=== PATIENT | male | born 1975 | race Caucasian/White ===

== ENCOUNTER 2016-04-18 21:41 | Emergency (ER) | payer OTHER ==
--- NOTE | 2016-04-18 22:49 | ED CLINICAL REPORT ---
Clinical Report - Physicians/Mid Levels [facility] [address] [place] [address] 04/18/2016 21:40 Patient: DESTINY WOOD Time Seen: 21:48; upon arrival, initial patient contact, initial documentation, patient care assumed. Arrived- By ambulance. Historian- patient. HISTORY OF PRESENT ILLNESS Chief Complaint: ABDOMINAL PAIN and FLANK PAIN. At its maximum, severity described as severe. When seen in the E.D., severity described as severe. Modifying factors- worsened by movement. Not relieved by anything. It is described as "pain". No radiation. It is described as located in the left abdomen and left lower quadrant and the left flank. This started just prior to arrival and is still present. The patient has had nausea. No loss of appetite. He has had vomiting (none today but threw a few times yesterday). He has had loose stools (few times today). This has occurred several times. No bloody, watery or blood-tinged diarrhea. No additional abdominal pain. No recent travel. Similar symptoms previously: Several times, as bad. ( says he pain is due from episodes of kidney failure). Recent medical care: Not recently seen/assessed. REVIEW OF SYSTEMS No constipation, black stools, hematemesis, difficulty with urination or pain with urination. No urinary frequency, bloody stools, fever, chest pain or difficulty breathing. All systems otherwise negative, except as recorded above. PAST HISTORY See nurses notes. PROBLEMS: ADHD - Attention Deficit Hyperactivity Disorder. URI. Immunizations. Sinus infection. --22:10 Kodak Velasquez R.N. ADDITIONAL SURGERIES: Circumcision. --22:10 Kodak Velasquez R.N. SOCIAL HISTORY Never smoker. Occasional alcohol use. History of occasional drug use: marijuana. No recent travel. Is a local resident. FAMILY HISTORY Negative. ADDITIONAL NOTES The nursing notes have been reviewed with agreement regarding the chief complaint, HPI, ROS, PMH and patient medications and allergies. PHYSICAL EXAM Vital Signs: 04/18/2016 21:47 BP: 128/88. HR: 90. RR: 16. O2 saturation: 98%. Temp: 98 F. Have been reviewed as normal and appear to be correct. Appearance: Alert. Oriented X3. No acute distress. Eyes: Pupils equal, round and reactive to light. Eyes normal inspection. Neck: Normal inspection. Neck supple. CVS: Normal heart rate and rhythm. Heart sounds normal. Pulses normal. Respiratory: No respiratory distress. Breath sounds normal. Chest nontender. Abdomen: Soft and nontender. Bowel sounds normal. No organomegaly. No mass. Back: Abnormal inspection. Mild CVA tenderness on the left. Skin: Skin warm and dry. Normal skin color. No rash. Normal skin turgor. Extremities: Extremities exhibit normal ROM. No lower extremity edema. Neuro: Oriented X 3. No motor deficit. No sensory deficit. LABS, X-RAYS, AND EKG Laboratory Tests: UA-Culture if indicated: (CHARANJIT: 04/18/2016 22:10) ( [facility] 04/18/2016 22:33) Final results Test Result Flag Units (Reference) URINE COLOR YELLOW URINE APPEARANCE CLEAR URINE GLUCOSE TRACE (NEGATIVE) URINE BILIRUBIN NEGATIVE (NEGATIVE) URINE KETONE NEGATIVE (NEGATIVE) URINE SPECIFIC GRAVITY 1.015 (1.010-1.030) URINE PH 7.0 (5.0-8.0) URINE PROTEIN NEGATIVE (NEGATIVE) URINE UROBILINOGEN 0.2 EU/dL (0.2-1.0) URINE NITRITE NEGATIVE (NEGATIVE) URINE BLOOD NEGATIVE (NEGATIVE) URINE LEUK ESTERASE NEGATIVE (NEGATIVE) URINE RBC NONE SEEN rbc/hpf (0-1) URINE WBC NONE SEEN wbc/hpf (0-1) URINE EPITHELIAL CELLS NONE SEEN EPI/hpf (0-5) URINE BACTERIA NONE SEEN (NONE SEEN) URINE COMMENT CULT NOT INDICATED URINE CULTURES ARE SET-UP BASED ON THE FOLLOWING CRITERIA:POSITIVE NITRITEPOSITIVE LEUKOCYTE ESTERASEGREATER THAN 10 WHITE BLOOD CELLSMODERATE (2+) OR GREATER BACTERIA CBC w Diff: (CHARANJIT: 04/18/2016 21:50) ( [facility] 04/18/2016 22:15) Final results Test Result Flag Units (Reference) WHITE BLOOD COUNT 6.9 K/uL (4.5-11.5) RED BLOOD COUNT 4.31 L M/uL (4.50-5.90) HEMOGLOBIN 13.3 L gm/dL (13.5-17.5) HEMATOCRIT 38.9 L % (41.0-53.0) MEAN CELL VOLUME 90 fL (80-100) MEAN CORPUSCULAR HGB 31 pg (26-34) MEAN CORPUSCULAR HGB CONC 34 g/dL (31-37) RED CELL DISTRIBUTION WIDTH 13.2 % (11.6-14.8) PLATELET COUNT 350 K/uL (150-400) LYMPH % 32.6 % (25-40) MONO % 3.1 % (3-14) GRANULOCYTE % 64.3 Urine Drug Screen: (CHARANJIT: 04/18/2016 22:10) ( MsgRcvd 04/18/2016 22:40) Final results Test Result Flag Units (Reference) AMPHETAMINE/METHAMPHETAMINE NEGATIVE (NEGATIVE) BARBITURATE NEGATIVE (NEGATIVE) BENZODIAZEPINE NEGATIVE (NEGATIVE) CANNABINOID POSITIVE H (NEGATIVE) COCAINE NEGATIVE (NEGATIVE) ECSTASY NEGATIVE (NEGATIVE) METHADONE NEGATIVE (NEGATIVE) OPIATE NEGATIVE (NEGATIVE) The urine drug screen is a qualitative screening test fordrug overdose and abuse. All screen results should beconsidered as presumptive.Drugs screened for are as follows:BenzodiazepinesCocaineAmphetamines/MetamphetaminesTHC (Tetrahydrocannabinol)OpiatesBarbituratesEcstasyMethadonePositive results are unconfirmed. For confirmation, notifythe lab for the specimen to be sent to the reference lab.All confirmations must be performed by a differentmethodology.The ingestion of natural herbal and plant productscontaining Ephedra/Ephedra metabolites can produce in urineone or more substances capable of cross reacting withamphetamine/methamphetamine immunoassays. These testsprovide a preliminary result only. A more specificalternative chemical method must be used to obtain aconfirmed analytical result. CMP: (CHARANJIT: 04/18/2016 21:50) ( MsgRcvd 04/18/2016 22:37) Final results Test Result Flag Units (Reference) GLUCOSE 221 H mg/dL (70-110) BUN 19 H mg/dL (7-18) CREATININE 1.4 H mg/dL (0.6-1.3) Estimated GFR >60 mL/min Estimated GFR- >60 mL/min Note: Persistent reduction over 3 months in eGFR<60 mL/min/1.73 m2 defines CKD. Patients with eGFR values>=60 mL/min/1.73 m2 may also have CKD if evidence ofpersistent proteinuria. Additional information may be foundat www.kidney.org. SODIUM 139 mmol/L (136-145) POTASSIUM 3.6 mmol/L (3.5-5.1) CHLORIDE 99 mmol/L (98-107) CARBON DIOXIDE 31 mmol/L (21-32) CALCIUM 9.6 mg/dL (8.5-10.1) TOTAL PROTEIN 7.8 g/dL (6.4-8.2) ALBUMIN 4.4 g/dL (3.3-5.0) BILIRUBIN, TOTAL 0.7 mg/dL (0.0-1.0) ALKALINE PHOSPHATASE 100 U/L (46-116) AST (SGOT) 23 U/L (15-37) ALT (SGPT) 36 U/L (12-78) LIPASE 198 U/L (73-393) AMYLASE 27 U/L (25-115) . PROGRESS AND PROCEDURES Course of Care: 21:59 04/18/16. pt has long lore with recommendation of no narcs, controlled substances, benzos rx or in er, limit radiation and frequent er visits, see report for full details. Patient counseled in person regarding the patient's stable condition, test results and diagnosis. 22:42. Differential Diagnosis: I considered gastritis, gastroenteritis, peptic ulcer disease, gastroesophageal reflux disease, diverticulitis, colon cancer, splenic infarction, spontaneous bacterial peritonitis, hernia, urinary tract infection, prostatitis, ureterolithiasis and viral syndrome as a possible cause of abdominal pain in this patient. This is a partial list of diagnoses considered. (substance abuse). Above considerations are based on history, physical exam and laboratory data. Differential diagnosis was discussed with patient and patient's spouse. Disposition: Discharged home in good and improved condition (22:49). Condition: good and stable. CLINICAL IMPRESSION Acute left upper quadrant abdominal pain of unknown cause. Acute left flank pain INSTRUCTIONS Warnings: GENERAL WARNINGS: Return or contact your physician immediately if your condition worsens or changes unexpectedly, if not improving as expected, or if other problems arise. SPECIFICALLY, return if you develop fever, the inability to keep fluids down, blood in vomitus, blood in diarrhea, fainting or lightheadedness. Prescription Medications: Zofran 4 mg: Take 1 orally every six hours as needed for nausea/vomiting. Dispense ten (10). No refills. Substitution is permissible. Bentyl 20 mg tablets: take 1 orally every 6 hours as needed. Dispense thirty (30). No refills. Substitution is permissible. Follow-up: Follow up with your doctor in about two days even if well. Call for an appointment. Summary of care provided to patient and family. Understanding of the discharge instructions verbalized by patient. (Electronically signed by Nancy Graves A.R.N.P. 04/26/2016 13:18)
--- NOTE | 2016-04-18 22:49 | ED NURSING NOTES ---
Clinical Report - Nurses [facility] [address] [place] [place] [address] 04/18/2016 21:40 Patient: DESTINY WOOD TRIAGE Triage time 2148. Acuity: LEVEL 3. Chief Complaint: (left flank pain). Alert. No acute distress. --21:52 Caroline Restrepo 21:47 04/18/16. BP: 128/88. HR: 90. RR: 16. O2 saturation: 98%. Temp: 98 F. Pain level now 12/10. --21:52 Caroline Restrepo. Weight: 111.1 kg. Height/Length: 68 inches. BMI: 37.3. --21:47 Caroline Restrepo. Medications MetFORMIN HCl Oral. --21:49 Caroline Restrepo Baclofen Oral. --21:49 Caroline Restrepo Amitriptyline HCl Oral. --21:50 Caroline Restrepo ClonazePAM Oral. --21:50 Caroline Restrepo Gabapentin Oral. --21:50 Caroline Restrepo Sertraline HCl Oral. --21:50 Caroline Restrepo. Allergies Ibuprofen. --21:50 Caroline Restrepo Aspirin. --21:50 Caroline Restrepo Tylenol. --21:50 Caroline Restrepo Codeine. --21:51 Caroline Restrepo. History Arrived by EMS. Historian: patient. Accompanied by family. This started yesterday. ( [facility] and his flank pain became worse and 911 was called, pt is a diabetic and has hx of episodic renal failure). SOCIAL HX: Never smoker. History of drug use: marijuana. --21:52 Caroline Restrepo. PROBLEMS: Hypertension. Diabetes Mellitus. --21:51 Caroline Restrepo. ADDITIONAL SURGERIES: Knee Surgery. --21:51 Caroline Restrepo. Interventions To treatment room. --21:52 Caroline Restrepo. PHYSICAL ASSESSMENT To room via stretcher. Patient gowned. GENERAL / NEURO / PSYCH: Alert. Oriented X 4. Appears in no acute distress. HEENT: Mucous membranes are pink. RESPIRATORY: Respirations not labored. Breath sounds within normal limits. CVS: Normal heart rate and rhythm. Capillary refill less than 2 seconds. GI / : Abdomen soft and nontender. Bowel sounds within normal limits. SKIN: Skin is warm and dry. --21:52 Caroline Restrepo. NURSING PROGRESS NOTES 22:00 04/18/2016 Site #1 started via IV in the left antecubital space with an 20g angiocath, with aseptic technique and good blood return; two attempts. Blood drawn: rainbow set. Labeled in the presence of the patient and sent to the lab. Saline lock flushed with 10 mL saline. --22:02 Philly Vragas R.N. 22:15 04/18/2016 Zofran (Ondansetron HCl) IVP 4 mg given. via site #1. Allergies verified and confirmed 5 rights. IV patency established. IV site checked: no pain, redness, or swelling. IV flushed thoroughly pre- and post-medication administration. IVP given by RN. --22:15 Caroline Restrepo 22:16 04/18/2016 Started bag #1 1000 mL IV Fluids IV NS (Saline); bolus of 1000 mL wide open via site #1. Allergies verified and confirmed 5 rights. IV patency established. IV site checked: no pain, redness, or swelling. IV flushed thoroughly pre- and post-medication administration. --22:16 Caroline Restrepo. DISPOSITION / DISCHARGE 23:08 04/18/16. BP: 128/72. HR: 80. RR: 14. O2 saturation: 97%. --23:09 Caroline Restrepo Departure time: 2305. Condition at departure: unchanged and stable. No learning barriers present. Discharge instructions provided and reviewed with the patient. Reviewed medication(s). Patient and spouse verbalized understanding. Written instructions provided in Bots[place]an. The patient was discharged by the nurse practitioner. He was discharged home and accompanied by spouse. He left the Emergency Department ambulatory and via ([employer]). --23:09 Caroline Restrepo 23:10 04/18/2016 Site #1 removed upon discharge. Pressure dressing applied. --23:10 Caroline Restrepo 23:10 04/18/2016 IV Saline Lock Drip IV Discontinued: bag #1 infused upon discharge. Total amount infused: 1000 mL. IV patency established. IV site checked: no pain, redness, or swelling. IV flushed thoroughly. --23:10 Caroline Restrepo. Locked/Released at 04/18/2016 23:11 by Caroline Restrepo,
--- NOTE | 2016-04-18 22:49 | ED NURSING NOTES ---
Clinical Report - Nurses [facility] [place] [address] 04/18/2016 21:40 Patient: DESTINY WOOD TRIAGE Triage time 2148. Acuity: LEVEL 3. Chief Complaint: (left flank pain). Alert. No acute distress. --21:52 Caroline Restrepo 21:47 04/18/16. BP: 128/88. HR: 90. RR: 16. O2 saturation: 98%. Temp: 98 F. Pain level now 12/10. --21:52 Caroline Restrepo. Weight: 111.1 kg. Height/Length: 68 inches. BMI: 37.3. --21:47 Caroline Restrepo. Medications MetFORMIN HCl Oral. --21:49 Caroline Restrepo Baclofen Oral. --21:49 Caroline Restrepo Amitriptyline HCl Oral. --21:50 Caroline Restrepo ClonazePAM Oral. --21:50 Caroline Restrepo Gabapentin Oral. --21:50 Caroline Restrepo Sertraline HCl Oral. --21:50 Caroline Restrepo. Allergies Ibuprofen. --21:50 Caroline Restrepo Aspirin. --21:50 Caroline Restrepo Tylenol. --21:50 Caroline Restrepo Codeine. --21:51 Caroline Restrepo. History Arrived by EMS. Historian: patient. Accompanied by family. This started yesterday. ( Pt was at the [facility] and his flank pain became worse and 911 was called, pt is a diabetic and has hx of episodic renal failure). SOCIAL HX: Never smoker. History of drug use: marijuana. --21:52 Caroline Restrepo. PROBLEMS: Hypertension. Diabetes Mellitus. --21:51 Caroline Restrepo. ADDITIONAL SURGERIES: Knee Surgery. --21:51 Caroline Restrepo. Interventions To treatment room. --21:52 Caroline Restrepo. PHYSICAL ASSESSMENT To room via stretcher. Patient gowned. GENERAL / NEURO / PSYCH: Alert. Oriented X 4. Appears in no acute distress. HEENT: Mucous membranes are pink. RESPIRATORY: Respirations not labored. Breath sounds within normal limits. CVS: Normal heart rate and rhythm. Capillary refill less than 2 seconds. GI / : Abdomen soft and nontender. Bowel sounds within normal limits. SKIN: Skin is warm and dry. --21:52 Caroline Restrepo. NURSING PROGRESS NOTES 22:00 04/18/2016 Site #1 started via IV in the left antecubital space with an 20g angiocath, with aseptic technique and good blood return; two attempts. Blood drawn: rainbow set. Labeled in the presence of the patient and sent to the lab. Saline lock flushed with 10 mL saline. --22:02 Philly Vargas R.N. 22:15 04/18/2016 Zofran (Ondansetron HCl) IVP 4 mg given. via site #1. Allergies verified and confirmed 5 rights. IV patency established. IV site checked: no pain, redness, or swelling. IV flushed thoroughly pre- and post-medication administration. IVP given by RN. --22:15 Caroline Restrepo 22:16 04/18/2016 Started bag #1 1000 mL IV Fluids IV NS (Saline); bolus of 1000 mL wide open via site #1. Allergies verified and confirmed 5 rights. IV patency established. IV site checked: no pain, redness, or swelling. IV flushed thoroughly pre- and post-medication administration. --22:16 Caroline Restrepo. DISPOSITION / DISCHARGE 23:08 04/18/16. BP: 128/72. HR: 80. RR: 14. O2 saturation: 97%. --23:09 Caroline Restrepo Departure time: 2305. Condition at departure: unchanged and stable. No learning barriers present. Discharge instructions provided and reviewed with the patient. Reviewed medication(s). Patient and spouse verbalized understanding. Written instructions provided in [place]ian. The patient was discharged by the nurse practitioner. He was discharged home and accompanied by spouse. He left the Emergency Department ambulatory and via ([employer]). --23:09 Caroline Restrepo 23:10 04/18/2016 Site #1 removed upon discharge. Pressure dressing applied. --23:10 Caroline Restrepo 23:10 04/18/2016 IV Saline Lock Drip IV Discontinued: bag #1 infused upon discharge. Total amount infused: 1000 mL. IV patency established. IV site checked: no pain, redness, or swelling. IV flushed thoroughly. --23:10 Caroline Restrepo. Locked/Released at 04/18/2016 23:11 by Caroline Restrepo,
--- NOTE | 2016-04-18 22:49 | ED ORDER SUMMARY ---
..... Patient: DESTINY WOOD OrderSheet [facility] VisitID: [id number] [place] [address] 40y, M Registration Date/Time: 04/18/2016 ORDER SHEET Weight: 111.1 kg Allergies: Ibuprofen, Aspirin, Tylenol, Codeine GENERAL ORDERS: CBC w Diff Urgent (21:59 04/18/2016 HBivens A.R.N.P.) (Ack 22:07 NHouse ER Tech1) CMP Urgent (:04/18/2016 HBivens A.R.N.P.) (Ack 22:07 NHouse ER Tech1) UA-Culture if indicated Urgent (:04/18/2016 HBivens A.R.N.P.) (Ack 22:07 NHouse ER Tech1) Urine Drug Screen Urgent (:04/18/2016 HBivens A.R.N.P.) (Ack 22:07 NHouse ER Tech1) Amylase Urgent (:04/18/2016 HBivens A.R.N.P.) (Ack 22:07 NHouse ER Tech1) Lipase Urgent (:04/18/2016 HBivens A.R.N.P.) (Ack 22:07 NHouse ER Tech1) MEDICATION ORDERS: Zofran ODT PO 4 mg (NOW) (21:58 04/18/2016 HBivens A.R.N.P.) (Ack 22:03 SRoberts R.N.) (Cancelled: Other22:10 HBivens A.R.N.P.) IV FLUIDS: IV NS : initial bolus 1000 mL (1000 mL/hr), then none - (NOW) (21:58 04/18/2016 HBivens A.R.N.P.) (Ack 22:03 SRoberts R.N.) (22:16 [facility]) IV Saline Lock (:59 04/18/2016 HBivens A.R.N.P.) (22:02 SRoberts R.N.) Zofran IV 4 mg (NOW) (22:10 04/18/2016 HBivens A.R.N.P.) (22:15 [facility]) ORDER SHEET NOTES: [Electronically signed by Caroline Restrepo (23:11 04/18/2016)] [Electronically signed by Nancy GravesR.N.PJodi (13:18 04/26/2016)] [Electronically locked/signed by Caroline Restrepo (23:11 04/18/2016)]
--- NOTE | 2016-04-18 22:49 | ED ORDER SUMMARY ---
..... Patient: DESTINY WOOD OrderSheet [facility] VisitID: [id number] [place] [address] 40y, M Registration Date/Time: 04/18/2016 ORDER SHEET Weight: 111.1 kg Allergies: Ibuprofen, Aspirin, Tylenol, Codeine GENERAL ORDERS: CBC w Diff Urgent (21:59 04/18/2016 HBivens A.R.N.P.) (Ack 22:07 NHouse ER Tech1) CMP Urgent (:04/18/2016 HBivens A.R.N.P.) (Ack 22:07 NHouse ER Tech1) UA-Culture if indicated Urgent (:04/18/2016 HBivens A.R.N.P.) (Ack 22:07 NHouse ER Tech1) Urine Drug Screen Urgent (:04/18/2016 HBivens A.R.N.P.) (Ack 22:07 NHouse ER Tech1) Amylase Urgent (:04/18/2016 HBivens A.R.N.P.) (Ack 22:07 NHouse ER Tech1) Lipase Urgent (:04/18/2016 HBivens A.R.N.P.) (Ack 22:07 NHouse ER Tech1) MEDICATION ORDERS: Zofran ODT PO 4 mg (NOW) (21:58 04/18/2016 HBivens A.R.N.P.) (Ack 22:03 SRoberts R.N.) (Cancelled: Other22:10 HBivens A.R.N.P.) IV FLUIDS: IV NS : initial bolus 1000 mL (1000 mL/hr), then none - (NOW) (21:58 04/18/2016 HBivens A.R.N.P.) (Ack 22:03 SRoberts R.N.) (22:16 [facility]) IV Saline Lock (:59 04/18/2016 HBivens A.R.N.P.) (22:02 SRoberts R.N.) Zofran IV 4 mg (NOW) (22:10 04/18/2016 HBivens A.R.N.P.) (22:15 [facility]) ORDER SHEET NOTES: [Electronically signed by Caroline Restrepo (23:11 04/18/2016)] [Electronically signed by Nancy GravesR.N.PJodi (13:18 04/26/2016)] [Electronically locked/signed by Caroline Restrepo (23:11 04/18/2016)]
--- NOTE | 2016-04-26 13:18 | ED MAR SUMMARY ---
..... Medication Administration Record [facility] [address] [place] [address] Patient: DESTINY WOOD Visit ID: [id number] 40y, M Weight: 111.1 kg Height/Length: 68 in BMI: 37.3 ALLERGIES: Codeine, Tylenol, Aspirin, Ibuprofen Given 22:15 04/18/2016 Caroline Restrepo, Medication Administered: ZOFRAN [IVP] (ONDANSETRON HCL), Dose: 4 mg IVP, Site: #1 left AC. Medication Ordered: Zofran IV 4 mg (NOW). Start 22:16 04/18/2016 Caroline Restrepo, Medication Administered: IV NS (SALINE), Dose: IV Fluids, Bolus: 1000 mL wide open, Dispensed: 1000 mL bag, Site: #1 left AC. Medication Ordered: IV NS : initial bolus 1000 mL (1000 mL/hr), then none - (NOW).
--- NOTE | 2016-04-26 13:18 | ED MAR SUMMARY ---
..... Medication Administration Record [facility] [address] [place] [address] Patient: DESTINY WOOD Visit ID: [id number] 40y, M Weight: 111.1 kg Height/Length: 68 in BMI: 37.3 ALLERGIES: Codeine, Tylenol, Aspirin, Ibuprofen Given 22:15 04/18/2016 Caroline Restrepo, Medication Administered: ZOFRAN [IVP] (ONDANSETRON HCL), Dose: 4 mg IVP, Site: #1 left AC. Medication Ordered: Zofran IV 4 mg (NOW). Start 22:16 04/18/2016 Caroline Restrepo, Medication Administered: IV NS (SALINE), Dose: IV Fluids, Bolus: 1000 mL wide open, Dispensed: 1000 mL bag, Site: #1 left AC. Medication Ordered: IV NS : initial bolus 1000 mL (1000 mL/hr), then none - (NOW).
--- NOTE | 2016-04-26 13:18 | ED MED RECONCILIATION SUMMARY ---
Patient: DESTINY WOOD Medication Reconciliation Report [facility] VisitID: [id number] [place] [address] 40y, M Registration Date/Time: 04/18/2016 Weight: 111.1 kg Height/Length: 68 in. BMI: 37.3 ALLERGIES: Aspirin, Codeine, Ibuprofen, Tylenol The patient's Home Medications are listed below: THE FOLLOWING MEDICATIONS NEED TO BE RECONCILED: Amitriptyline HCl Oral Baclofen Oral ClonazePAM Oral Gabapentin Oral MetFORMIN HCl Oral Sertraline HCl Oral The source(s) of the original Home Medication information: Not obtained. The following Medications were given to the patient in the Emergency Department: Zofran [IVP] IVP 4 mg, administered: 04/18/2016 10:15:00 PM IV NS IV Fluids bolus 1000 mL wide open, administered: 04/18/2016 10:16:00 PM The following Medications were prescribed to the patient: Zofran 4 mg: Take 1 orally every six hours as needed for nausea/vomiting. Dispense ten (10). No refills. Substitution is permissible. -- Nancy Graves A.R.N.P. Bentyl 20 mg tablets: take 1 orally every 6 hours as needed. Dispense thirty (30). No refills. Substitution is permissible. -- Nancy Graves A.R.N.P.
--- NOTE | 2016-04-26 13:18 | ED DISCHARGE INSTRUCTIONS ---
Patient: DESTINY WOOD General Instructions [facility] VisitID: [id number] [place] [address] 40y, M Registration Date/Time: 04/18/2016 Acute left upper quadrant abdominal pain of unknown cause. Acute left flank pain INSTRUCTIONS Warnings: GENERAL WARNINGS: Return or contact your physician immediately if your condition worsens or changes unexpectedly, if not improving as expected, or if other problems arise. SPECIFICALLY, return if you develop fever, the inability to keep fluids down, blood in vomitus, blood in diarrhea, fainting or lightheadedness. Prescription Medications: Zofran 4 mg: Take 1 orally every six hours as needed for nausea/vomiting. Dispense ten (10). No refills. Substitution is permissible. Bentyl 20 mg tablets: take 1 orally every 6 hours as needed. Dispense thirty (30). No refills. Substitution is permissible. Follow-up: Follow up with your doctor in about two days even if well. Call for an appointment. Summary of care provided to patient and family. Understanding of the discharge instructions verbalized by patient. ADDITIONAL INFORMATION Abdominal Pain,Uncertain Cause [Male] Based on your visit today, the exact cause of your abdominalpain is not clear. Your exam and tests do not indicate a dangerous cause at this time. However, the signs of a serious problem may take more time to appear. Although your evaluation was reassuring today, sometimes early in the course of many conditions, exam and lab tests can appear normal. Therefore, it is important for you to watch for any new symptoms or worsening of your condition. Causes It may not be obvious what caused your symptoms. Pay attention to things that do seem to make your symptoms worse or better and discuss this with your doctor when you follow up. Diagnosis The evaluation of abdominal pain in the emergency department may onlyrequire an exam by the doctor or it may include blood, urine or imaging studies, depending on many factors. Sometimes exams and tests can identify a cause but in many cases, a clear cause is not found. Further testing at follow up visits may help to suggest a clear diagnosis. Home Care Rest as much as possible until your next exam. Try to avoid any medications (unless otherwise directed by your doctor), foods, activities, or other factors that you may have contributed to your symptoms. Try to eat foods that you know that you have tolerated well in the past. Certain diets may be recommended for some conditions that cause abdominal pain. However, since the cause of your symptoms may not be clear, discuss your diet more with your primary care provider or specialist for further recommendations. Eating several small meals per day as opposed to 2 or 3 larger meals may help. Monitor closely for anything that may make your symptoms worse or better. Pay close attention to symptoms below that may indicate worsening of your condition. Follow Up and Precautions See your doctoras instructed or sooneror if your symptoms are not improving.In some cases, you may need more testing. When to Seek Medical Attention Contact your doctor or see medical attention ifany of the following occur: Pain is becoming worse You are unable to take your medications due to excessive vomiting Swelling of the abdomen Fever of 100.4F (38C) or higher, or as directed by your health care provider Blood in vomit or bowel movements (dark red or black color) Jaundice (yellow color of eyes and skin) New onset of weakness, dizziness or fainting New onset of chest, arm, back, neck or jaw pain Flank Pain[Uncertain Cause] The flank is the area between the upper abdomen and the back. Pain here is often related to the kidneyan infection or a kidney stone. Other causes of flank pain include spinal arthritis, pinched nerve from a disk injury, back muscle strain or spasm. The cause of your flank pain is not certain and further tests may be needed. Home Care: You may use acetaminophen (Tylenol) or ibuprofen (Motrin, Advil) to control pain, unless another medicine was prescribed. [NOTE: If you have chronic liver or kidney disease or ever had a stomach ulcer or GI bleeding, talk with your doctor before using these medicines.] If the cause of your pain is coming from the muscles, ice or heat may give relief. During the first two days after injury, apply an ICE PACK to the painful area for 20 minutes every 2-4 hours. This will reduce swelling and pain. HEAT (hot shower, hot bath or heating pad) works well for muscle spasm. You can start with ice, then switch to heat after two days. Some patients feel best alternating ice and heat treatments. Use the one method that feels the best to you. Follow Up with your doctor or as advised by our staff for further evaluation if your symptoms are not improving over the next few days. Return Promptly or contact your doctor if any of the following occur: Repeated vomiting Fever of 100.4F (38C) or higher, or as directed by your healthcare provider Increasing flank pain Pain that spreads to the front of the abdomen Dizziness, weakness or fainting Blood in your urine Burning with urination or frequent urination Increasing pain in the leg Numbness or weakness in the leg Ondansetron Oral disintegrating tablet What is this medicine? ONDANSETRON (on GAVIN se mihaela) is used to treat nausea and vomiting caused by chemotherapy. It is also used to prevent or treat nausea and vomiting after surgery. How should I use this medicine? These tablets are made to dissolve in the mouth. Do not try to push the tablet through the foil backing. With dry hands, peel away the foil backing and gently remove the tablet. Place the tablet in the mouth and allow it to dissolve, then swallow. While you may take these tablets with water, it is not necessary to do so. Talk to your liquid sugar fortifier regarding the use of this medicine in children. Special care may be needed. What side effects may I notice from receiving this medicine? Side effects that you should report to your doctor or health manager intensive care as soon as possible: allergic reactions like skin rash, itching or hives, swelling of the face, lips, or tongue breathing problems dizziness fast or irregular heartbeat feeling faint or lightheaded, falls fever and chills swelling of the hands and feet tightness in the chest Side effects that usually do not require medical attention (report to your doctor or health manager intensive care if they continue or are bothersome): constipation or diarrhea headache What may interact with this medicine? Do not take this medicine with any of the following medications: -apomorphine -cisapride -dofetilide -dronedarone -pimozide -thioridazine -ziprasidone This medicine may also interact with the following medications: -carbamazepine -phenytoin -rifampicin -tramadol -other medicines that prolong the QT interval (cause an abnormal heart rhythm) What if I miss a dose? If you miss a dose, take it as soon as you can. If it is almost time for your next dose, take only that dose. Do not take double or extra doses. Where should I keep my medicine? Keep out of the reach of children. Store between 2 and 30 degrees C (36 and 86 degrees F). Throw away any unused medicine after the expiration date. What should I tell my health care provider before I take this medicine? They need to know if you have any of these conditions: heart disease history of irregular heartbeat liver disease low levels of magnesium or potassium in the blood an unusual or allergic reaction to ondansetron, granisetron, other medicines, foods, dyes, or preservatives or trying to get breast-feeding What should I watch for while using this medicine? Check with your doctor or health manager intensive care as soon as you can if you have any sign of an allergic reaction. Dicyclomine Hydrochloride Oral tablet What is this medicine? DICYCLOMINE (dye SYE karen terrazas) is used to treat bowel problems including irritable bowel syndrome. How should I use this medicine? Take this medicine by mouth with a glass of water. Follow the directions on the prescription label. It is best to take this medicine on an empty stomach, 30 minutes to 1 hour before meals. Take your medicine at regular intervals. Do not take your medicine more often than directed. Talk to your liquid sugar fortifier regarding the use of this medicine in children. Special care may be needed. While this drug may be prescribed for children as young as 6 months of age for selected conditions, precautions do apply. Patients over 65 years old may have a stronger reaction and need a smaller dose. What side effects may I notice from receiving this medicine? Side effects that you should report to your doctor or health manager intensive care as soon as possible: agitation, nervousness, confusion difficulty swallowing dizziness, drowsiness fast or slow heartbeat hallucinations pain or difficulty passing urine Side effects that usually do not require medical attention (report to your doctor or health manager intensive care if they continue or are bothersome): constipation headache nausea or vomiting sexual difficulty What may interact with this medicine? amantadine antacids benztropine digoxin disopyramide medicines for allergies, colds and breathing difficulties medicines for alzheimer's disease medicines for anxiety or sleeping problems medicines for depression or psychotic disturbances medicines for diarrhea medicines for pain metoclopramide tegaserod What if I miss a dose? If you miss a dose, take it as soon as you can. If it is almost time for your next dose, take only that dose. Do not take double or extra doses. Where should I keep my medicine? Keep out of the reach of children. Store at room temperature below 30 degrees C (86 degrees F). Protect from light. Throw away any unused medicine after the expiration date. What should I tell my health care provider before I take this medicine? They need to know if you have any of these conditions: difficulty passing urine esophagus problems or heartburn glaucoma heart disease, or previous heart attack myasthenia gravis prostate trouble stomach infection, or obstruction ulcerative colitis an unusual or allergic reaction to dicyclomine, other medicines, foods, dyes, or preservatives or trying to get breast-feeding What should I watch for while using this medicine? You may get drowsy, dizzy, or have blurred vision. Do not drive, use machinery, or do anything that needs mental alertness until you know how this medicine affects you. To reduce the risk of dizzy or fainting spells, do not sit or stand up quickly, especially if you are an older patient. Alcohol can make you more drowsy, avoid alcoholic drinks. Stay out of bright light and wear sunglasses if this medicine makes your eyes more sensitive to light. Avoid extreme heat (hot tubs, saunas). This medicine can cause you to sweat less than normal. Your body temperature could increase to dangerous levels, which may lead to heat stroke. Antacids can stop this medicine from working. If you get an upset stomach and want to take an antacid, make sure there is an interval of at least 1 to 2 hours before or after you take this medicine. Your mouth may get dry. Chewing sugarless gum or sucking hard candy, and drinking plenty of water may help. Contact your doctor if the problem does not go away or is severe. You have been given the following additional information: Abdominal Pain, Unknown Cause, (Male) Flank Pain, Uncertain Cause Ondansetron Oral disintegrating tablet Dicyclomine Hydrochloride Oral tablet (Electronically signed by Nancy Graves A.R.N.P. 04/26/2016 13:18)
--- NOTE | 2016-04-26 13:18 | ED MED RECONCILIATION SUMMARY ---
Patient: DESTINY WOOD Medication Reconciliation Report [facility] VisitID: [id number] [place] [address] 40y, M Registration Date/Time: 04/18/2016 Weight: 111.1 kg Height/Length: 68 in. BMI: 37.3 ALLERGIES: Aspirin, Codeine, Ibuprofen, Tylenol The patient's Home Medications are listed below: THE FOLLOWING MEDICATIONS NEED TO BE RECONCILED: Amitriptyline HCl Oral Baclofen Oral ClonazePAM Oral Gabapentin Oral MetFORMIN HCl Oral Sertraline HCl Oral The source(s) of the original Home Medication information: Not obtained. The following Medications were given to the patient in the Emergency Department: Zofran [IVP] IVP 4 mg, administered: 04/18/2016 10:15:00 PM IV NS IV Fluids bolus 1000 mL wide open, administered: 04/18/2016 10:16:00 PM The following Medications were prescribed to the patient: Zofran 4 mg: Take 1 orally every six hours as needed for nausea/vomiting. Dispense ten (10). No refills. Substitution is permissible. -- Nancy Graves A.R.N.P. Bentyl 20 mg tablets: take 1 orally every 6 hours as needed. Dispense thirty (30). No refills. Substitution is permissible. -- Nancy Graves A.R.N.P.
== END 2016-04-18 23:05 | disposition home or self-care (01) ==
LOC: ED SRH 21:41
DX: R10.12 Left upper quadrant pain (principal); E11.9 Type 2 diabetes mellitus without complications; I10 Essential (primary) hypertension; Z79.84 Long term (current) use of oral hypoglycemic drugs; Z79.899 Other long term (current) drug therapy; Z88.6 Allergy status to analgesic agent; Z88.5 Allergy status to narcotic agent
CPT/HCPCS: 90004; 90100; 92235; 92530; 92760; 92761; 92762; 92763; 92764; 92765; 92766; 92767; 95059